=== PATIENT | male | born 1940 | race Caucasian/White ===

== ENCOUNTER 2024-05-03 11:45 | Emergency (ER) | payer OTHER ==
--- NOTE | 2024-05-03 12:37 | RAD REPORT ---
EXAM DESCRIPTION: CT - Ct Stroke Brain Wo Cont - 05/03/2024 12:26 pm CLINICAL HISTORY: Dizziness COMPARISON: none TECHNIQUE: Computed axial tomography of the head was obtained. All CT scans are performed using dose optimization technique as appropriate and may include automated exposure control or mA/KV adjustment according to patient size. FINDINGS: An intracranial bleed is not seen . The ventricles are normal in caliber. No extra-axial fluid collection is noted. Mild to moderate low-density within periventricular, deep and subcortical white matter likely ischemi c changes secondary to small vessel disease Fluid within the sinuses/ mastoids is not seen. IMPRESSION: No acute intracranial abnormality is seen. If patient's symptoms persist MRI of the bra in would be recommended Laila of the emergency room was notified at 12:33 p.m. May 03, 2024
--- NOTE | 2024-05-03 12:45 | RAD REPORT ---
EXAM DESCRIPTION: Sandy Angio05/03/2024 12:26 pm CLINICAL HISTORY: Dizziness COMPARISON: None TECHNIQUE: 100 cc Isovue [address] angiogram of the neck was obtained. 3D MIPS reconstruction performed. All CT scans are performed using dose optimization technique as appropriate and may include automated exposure control or mA/KV adjustment according to patient size. FINDINGS: The examination is suboptimal secondary to machine malfunctioned resulting in the timing o f the bolus being delayed. Visualized great vessels unremarkable Severe plaque is present within the proximal left internal carotid artery Mild plaque in the remainder the common carotid, internal carotid and external carotid arteries. Limited evaluation of the vertebral arteries without gross significant abnormality seen [place] crieria Mild stenosis 0 to 49 % Moderate stenosis 50-69% Severe stenosis 70-99% IMPRESSION: Severe plaque proximal left internal carotid artery resulting in an approximately 95% stenosis
--- NOTE | 2024-05-03 12:46 | RAD REPORT ---
EXAM DESCRIPTION: CTHead angio05/03/2024 12:26 pm CLINICAL HISTORY: Dizziness COMPARISON: none TECHNIQUE: 100 cc Isovue [address] angiogram of the head was obtained. 3D MIPS reconstruction performed. All CT scans are performed using dose optimization technique as appropriate and may include automated exposure control or mA/KV adjustment according to patient size. FINDINGS: The basilar, anterior cerebral, middle cerebral and posterior cerebral arteries do not dem onstrate a significant stenosis Mild calcified plaque distal internal carotid arteries origin left posterior cerebral artery An aneurysm is not seen No large vessel occlusion IMPRESSION: No significant vascular abnormality is displayed
--- NOTE | 2024-05-03 13:45 | RAD REPORT ---
EXAM DESCRIPTION: RAD - Chest Single View - 05/03/2024 1:28 pm CLINICAL HISTORY: dizziness Chest pain. COMPARISON: No comparisons FINDINGS: Portable technique limits examination quality. The lungs are significant emphysematous but grossly clear. The heart is normal in size. No displaced fractures. IMPRESSION: Prominent COPD.
[2024-05-03 13:46] LABS: Absolute Eosinophils 0.1 K/uL (0-0.5); Absolute Monocytes 0.6 K/uL (0.1-1.3); Absolute Neutrophil 7.8 K/uL (1.8-8.0); Basophils % 0.4 % (0-1.3); Eosinophils % 0.6 % (0-4.4); Hematocrit 42.9 % (39.6-49.0); Hemoglobin 13.9 g/dL (13.6-17.9); Lymphocytes % 10.2 % (15.3-44.8); MCH 27.9 pg (27.0-35.0); MCHC 32.5 g/dL (32.0-36.0); MCV 85.8 fL (80-100); MPV 7.8 fL (7.6-11.3); Monocytes % 6.6 % (3.3-12.3); Neutrophils % 82.2 % (41.7-73.7); Platelets 203 thou/uL (152-406); RBC Red Blood Cell Count 4.99 M/uL (4.33-5.43); Red Cell Distribution Width 14.1 % (12.1-15.2)
[2024-05-03 14:02] LABS: Anion Gap 8.2 mEq/L (5.0-15.0); Potassium 4.2 mEq/L (3.5-5.1)
--- NOTE | 2024-05-03 14:03 | RAD REPORT ---
EXAM DESCRIPTION: MRI - Brain Wo Cont - 05/03/2024 1:54 pm CLINICAL HISTORY: DIZZINESS Headache, drowsiness COMPARISON: Head angio dated 05/03/2024 TECHNIQUE: Multi-sequence, multiplanar MR imaging of the brain was performed without contrast. FINDINGS: No intracranial hemorrhage, hydrocephalus or extra-axial fluid collections.Moderate conflu ent T2/FLAIR hyperintensity in the periventricular and deep white matter is present compatible with c hronic microvascular ischemic changes. No edema or shift of midline structures. No findings to suspec t brain mass. DWI is negative for acute CVA. Midline structures are normally formed. Mastoid air cells and paranasal sinuses are clear. IMPRESSION: Negative for acute CVA or other acute intracranial process.
[2024-05-03 14:05] LABS: PT Prothrombin Time 11.9 SECONDS (9.4-12.5); PTT, Activated Partial Thromb 37.5 SECONDS (24.3-36.9); Protime INR 1.06
--- NOTE | 2024-05-03 15:01 | ER ---
Nurse's Notes [facility] Name: Litzy Mtz Age: 83 yrs Sex: Male : 1940 Arrival Date: 05/03/2024 Time: 11:45 Bed 4 Private MD: Diagnosis: Dizziness and giddiness;Left carotid artery stenosis, high grade Presentation: 05/03 11:50 Chief complaint: EMS states: Lives at [facility], was with daughter today walking at the mall and began c/o fatigue, then after leaving mall went to a storage facility and c/o feeling overheated and dizzy, when EMS arrived was found sitting on ground pale and diaphoretic, systolic BP 100s, IV established and 200 mL NS given. Coronavirus screen: Vaccine status: Patient reports receiving the 2nd dose of the covid vaccine. Ebola Screen: No symptoms or risks identified at this time. Initial Sepsis Screen: Does the patient meet any 2 criteria? No. Patient's initial sepsis screen is negative. Does the patient have a suspected source of infection? No. Patient's initial sepsis screen is negative. Risk Assessment: Do you want to hurt yourself or someone else? Patient reports no desire to harm self or others. Onset of symptoms was May 03, 2024. 11:50 Method Of Arrival: EMS: [facility] 11:50 Acuity: WIN 3 ph Triage Assessment: 11:56 General: Appears in no apparent distress. Behavior is calm, cooperative. Pain: Denies ph pain. Neuro: Level of Consciousness is awake, alert, obeys commands, Oriented to person, place. Respiratory: Airway is patent Respiratory effort is even, unlabored. Derm: Skin is pink, warm \T\ dry. Musculoskeletal: Circulation, motion, and sensation intact. Range of motion: intact in all extremities. Historical: - Allergies: 11:54 No Known Allergies; ph - PMHx: 11:54 None; ph - Immunization history:: Adult Immunizations up to date. - Infectious Disease History:: Denies. - Social history:: Smoking status: Patient denies any tobacco usage or history of. - Family history:: not pertinent. - Hospitalizations: : No recent hospitalization is reported. Screenin:56 [facility] ED Fall Risk Assessment (Adult) History of falling in the last 3 months, ph including since admission No falls in past 3 months (0 pts) Confusion or Disorientation No (0 pts) Intoxicated or Sedated No (0 pts) Impaired Gait No (0 pts) Mobility Assist Device Used No (0 pt) Altered Elimination No (0 pt) Score/Fall Risk Level 0 - 2 = Low Risk Oriented to surroundings, Maintained a safe environment, Hourly rounding (assess needs \T\ fall precautionary measures) done. Abuse screen: Denies threats or abuse. Denies injuries from another. Nutritional screening: No deficits noted. Tuberculosis screening: No symptoms or risk factors identified. Assessment: 13:45 General: Appears in no apparent distress. Behavior is calm, cooperative. Pain: Denies ph pain. Neuro: Level of Consciousness is awake, alert, obeys commands, Oriented to person, place, situation. Cardiovascular: Capillary refill < 3 seconds in bilateral fingers Patient's skin is warm and dry. Respiratory: Airway is patent Respiratory effort is even, unlabored. Derm: Skin is pink, warm \T\ dry. 14:36 Reassessment: Initiated transfer at [facility]. Spoke with Enzo, transfer iw coordinator who states he will start working on transfer and call back. 16:00 Reassessment: Patient appears in no apparent distress at this time. Patient and/or ph family updated on plan of care and expected duration. Pain level reassessed. Patient is alert, oriented x 3, equal unlabored respirations, skin warm/dry/pink. 17:23 Reassessment: attempted to call report to receiving hospital, asked to call back in 20 kj2 minutes. Vital Signs: 11:50 BP 120 / 79; Pulse 64; Resp 18; Temp 97.1; Pulse Ox 100% on R/A; Weight 68.04 kg; ph Height 5 ft. 9 in. ; 13:46 BP 121 / 78; Pulse 71; Resp 18; Pulse Ox 97% on R/A; ph 15:30 BP 122 / 78; Pulse 72; Resp 18; Pulse Ox 99% on R/A; ph 17:00 BP 116 / 75; Pulse 68; Resp 16; Pulse Ox 99% on R/A; ph 18:00 BP 112 / 64; Pulse 73; Resp 18; Pulse Ox 100% on R/A; ph 19:00 BP 104 / 70; Pulse 67; Resp 15; Pulse Ox 94% on R/A; me1 20:00 BP 99 / 69; Pulse 63; Resp 16; Temp 98.1; Pulse Ox 94% ; me1 11:50 Body Mass Index 22.15 (68.04 kg, 175.26 cm) ph ED Course: 11:50 Patient arrived in ED. ph 11:54 Triage completed. ph 11:54 Arm band placed on. ph 11:55 Fuad Bhakta MD is Attending Physician. rn 11:57 Patient has correct armband on for positive identification. Bed in low position. Call ph light in reach. Side rails up X2. Client placed on continuous cardiac and pulse oximetry monitoring. NIBP monitoring applied. 12:27 CT Neck Angio In Process Unspecified. EDMS 12:27 CT Stroke Brain w/o Contrast In Process Unspecified. EDMS 12:27 Head angio In Process Unspecified. EDMS 12:43 Caro Cortés, RN is Primary Nurse. ph 13:07 Brain Wo Cont MRI In Process Unspecified. EDMS 13:30 Stroke CXR 1 View In Process Unspecified. EDMS 13:46 Initial lab(s) drawn, by me, sent to lab. EKG done, by ED staff, reviewed by Fuad Bhakta MD. Maintain EMS IV. Dressing intact. Good blood return noted. Site clean \T\ dry. Gauge \T\ site: 20 RAC. Flushed with 10 mL NS. 14:46 Assisted with urinal. Cleaned of incontinence. Linen changed. cm10 18:43 initiated transfer to [facility], pt accepted by dr Pruett admin given by esvin harrison 18:46 pt to be transferred by [facility] at 1930. bd 19:22 No provider procedures requiring assistance completed. Patient transferred, IV remains ph in place. 20:47 Provided Education on: Need for transfer. me1 Administered Medications: 13:45 Drug: NS 0.9% IV 500 ml IV at bolus once Route: IV; Rate: bolus; Site: right ph antecubital; 14:35 Follow up: Response: No adverse reaction; IV Status: Completed infusion; IV Intake: ph 500ml 17:08 Drug: Aspirin PO 325 mg PO once Route: PO; kj2 19:21 Follow up: Response: No adverse reaction ph Medication: 11:57 VIS not applicable for this client. ph Intake: 14:35 IV: 500ml; Total: 500ml. ph Outcome: 15:01 ER care complete, transfer ordered by . rn 20:48 Transferred by ground EMS Transfer form completed. X-rays sent w/ patient. me1 20:48 Transferred to [facility], 20:48 Condition: stable 20:48 Instructed on the need for transfer, 20:49 Patient left the ED. me1 Signatures: Dispatcher [employer] EDMS Rosetta Stewart Irene, RN RN Fuad Bhakta MD MD rn Hall, Patricia, RN RN ph Martinez, Clarissa, RN RN cm10 Kavitha Brennan RN RN me1 Lo Clark, RN RN kj2
--- NOTE | 2024-05-03 15:01 | EDPHYS ---
Physician Documentation [facility] Name: Litzy Mtz Age: 83 yrs Sex: Male : 1940 Arrival Date: 05/03/2024 Time: 11:45 Bed 4 Private MD: ED Physician Fuad Bhakta HPI: 05/03 13:19 This 83 yrs old Male presents to ER via EMS with complaints of General Weakness. rn 13:19 The patient presents with dizziness, feeling faint, generalized weakness, rn lightheadedness. Onset: The symptoms/episode began/occurred this morning. Modifying factors: The symptoms are alleviated by lying down, the symptoms are aggravated by nothing. Severity of symptoms: At their worst the symptoms were moderate in the emergency department the symptoms have resolved. The patient has not experienced similar symptoms in the past. Patient reports generalized weakness and lightheadedness, felt off balance, no syncopal episode. Happened shortly after exercise this morning when he was walking in the mall. Patient reports felt dizzy for a few minutes and now completely back to baseline. Family states does not eat or drink very much since dementia diagnosis. Had COVID 2 weeks ago. No focal weakness or numbness. Does not feel dizzy currently. Does not feel off balance. Denies preceding chest pain or shortness of breath.. Historical: - Allergies: 11:54 No Known Allergies; ph - PMHx: 11:54 None; ph - Immunization history:: Adult Immunizations up to date. - Infectious Disease History:: Denies. - Social history:: Smoking status: Patient denies any tobacco usage or history of. - Family history:: not pertinent. - Hospitalizations: : No recent hospitalization is reported. ROS: 13:19 Constitutional: Negative for fever, chills, and weight loss, Eyes: Negative for injury, rn pain, redness, and discharge, ENT: Negative for injury, pain, and discharge, Neck: Negative for injury, pain, and swelling, Cardiovascular: Negative for chest pain, palpitations, and edema, Respiratory: Negative for shortness of breath, cough, wheezing, and pleuritic chest pain, Abdomen/GI: Negative for abdominal pain, nausea, vomiting, diarrhea, and constipation, Back: Negative for injury and pain, MS/Extremity: Negative for injury and deformity, Skin: Negative for injury, rash, and discoloration, Neuro: Negative for headache, numbness, tingling, and seizure Exam: 13:19 Constitutional: This is a well developed, well nourished patient who is awake, alert, rn and in no acute distress. Head/Face: Normocephalic, atraumatic. ENT: Dry mucous membranes Cardiovascular: Regular rate and rhythm. No pulse deficits. Respiratory: No increased work of breathing, no retractions or nasal flaring. Abdomen/GI: Soft, non-tender MS/ Extremity: Pulses equal, no cyanosis. Neurovascular intact. Full, normal range of motion. Equal circumference. Neuro: Awake and alert, GCS 15, oriented to person, place, time, and situation. Cranial nerves II-XII grossly intact. Motor strength 5/5 in all extremities. Sensory grossly intact. Cerebellar exam normal 15:56 ECG was reviewed by the Attending Physician. rn Vital Signs: 11:50 BP 120 / 79; Pulse 64; Resp 18; Temp 97.1; Pulse Ox 100% on R/A; Weight 68.04 kg; ph Height 5 ft. 9 in. ; 13:46 BP 121 / 78; Pulse 71; Resp 18; Pulse Ox 97% on R/A; ph 15:30 BP 122 / 78; Pulse 72; Resp 18; Pulse Ox 99% on R/A; ph 17:00 BP 116 / 75; Pulse 68; Resp 16; Pulse Ox 99% on R/A; ph 18:00 BP 112 / 64; Pulse 73; Resp 18; Pulse Ox 100% on R/A; ph 19:00 BP 104 / 70; Pulse 67; Resp 15; Pulse Ox 94% on R/A; me1 20:00 BP 99 / 69; Pulse 63; Resp 16; Temp 98.1; Pulse Ox 94% ; me1 11:50 Body Mass Index 22.15 (68.04 kg, 175.26 cm) ph MDM: 11:55 Patient medically screened. rn 14:24 ED course: Consulted with Dr. Harrell, recommends transfer given TIA presentation and rn 95% stenosis of the left internal carotid artery.. 14:35 Differential diagnosis: CVA, hypovolemia, idiopathic dizziness, TIA, vertigo. Data rn reviewed: vital signs, nurses notes, lab test result(s), radiologic studies, CT scan, MRI, and as a result, I will admit patient. Consideration of Admission/Observation Patient was admitted/placed on observation. Escalation of care including admission/observation considered. Counseling: I had a detailed discussion with the patient and/or guardian regarding the historical points, exam findings, and any diagnostic results supporting the discharge/admit diagnosis, lab results, radiology results, the need for further work-up and treatment in the hospital, the need to transfer to another facility. 05/03 12:06 Order name: Basic Metabolic Panel; Complete Time: 14:10 05/03 12:06 Order name: CBC with Diff; Complete Time: 14:10 05/03 12:06 Order name: High Sensitivity Troponin; Complete Time: 14:10 05/03 12:06 Order name: Protime (+inr); Complete Time: 14:10 05/03 12:06 Order name: Ptt, Activated; Complete Time: 14:10 05/03 12:45 Order name: CREATININE WHOLE BLOOD; Complete Time: 14:11 [facility] 05/03 12:06 Order name: CT Neck Angio 05/03 12:06 Order name: CT Stroke Brain w/o Contrast 05/03 12:06 Order name: Stroke CXR 1 View 05/03 12:06 Order name: Brain Wo Cont MRI 05/03 12:25 Order name: Head angio [facility] 05/03 12:06 Order name: Accucheck; Complete Time: 13:45 05/03 12:06 Order name: Cardiac monitoring; Complete Time: 13:45 05/03 12:06 Order name: EKG - Nurse/Tech; Complete Time: 13:45 05/03 12:06 Order name: IV Saline Lock; Complete Time: 13:45 05/03 12:06 Order name: Labs collected and sent; Complete Time: 13:45 rn 05/03 12:06 Order name: NPO; Complete Time: 13:45 rn 05/03 12:06 Order name: O2 Per Protocol; Complete Time: 13:45 rn 05/03 12:06 Order name: O2 Sat Monitoring; Complete Time: 13:45 rn 05/03 12:06 Order name: Stroke Swallow Screen; Complete Time: 13:45 rn EC:56 Rate is 74 beats/min. Rhythm is regular. QRS [place] is Normal. GA interval is normal. QRS rn interval is normal. QT interval is normal. No Q waves. T waves are Normal. No ST changes noted. Clinical impression: Normal ECG. Interpreted by me. Reviewed by me. Administered Medications: 13:45 Drug: NS 0.9% IV 500 ml IV at bolus once Route: IV; Rate: bolus; Site: right ph antecubital; 14:35 Follow up: Response: No adverse reaction; IV Status: Completed infusion; IV Intake: ph 500ml 17:08 Drug: Aspirin PO 325 mg PO once Route: PO; kj2 19:21 Follow up: Response: No adverse reaction ph Disposition Summary: 05/03/24 15:01 Transfer Ordered Notes: Transfer Location: [facility] rn Reason: Higher level of care rn Condition: Stable rn Problem: new rn Symptoms: have improved rn Accepting Physician: (05/03/24 20:49) me1 Diagnosis - Dizziness and giddiness rn - Left carotid artery stenosis, high grade rn Forms: - Medication Reconciliation Form rn - SBAR form rn Signatures: Dispatcher [employer] EDMS Fuad Bhakta MD MD rn Hall, Patricia RN RN Kavitha Brennan, RN RN me1 Lo Clark RN RN kj2 Corrections: (The following items were deleted from the chart) 12:07 12:07 Neck Angio+CT.RAD.BRZ ordered. EDMS EDMS 12:07 12:07 CT-STROKE BRAIN W/O CONTRAST+CT.RAD.BRZ ordered. EDMS EDMS 12:07 12:07 Chest Single View+RAD.RAD.BRZ ordered. EDMS EDMS 12:07 12:07 Brain Wo Cont+MRI.RAD.BRZ ordered. EDMS EDMS 20:49 15:01 rn me1
[2024-05-03] MEDS ORDERED: ASPIRIN 325 MG TAB ONE (16:59)
[2024-05-03 20:58] VITALS: O2SAT 94
[2024-05-03 21:00] VITALS: BP 99/69; TEMP 98.1
== END 2024-05-03 20:49 | disposition short-term general hospital (02) ==
LOC: ER 11:45
DX: I65.22 Occlusion and stenosis of left carotid artery (principal)
CPT/HCPCS: 85025; 80048; 36415; 85610; 82565; 85730; 84484; 70496; 70498; 70450; 71045; 70551; Q9967

== ENCOUNTER 2024-06-26 11:10 | Emergency (ER) | payer OTHER ==
[2024-06-26] MEDS ORDERED: NA CHLORIDE 0.9% 250 ML ONE (11:36)
[2024-06-26 11:44] LABS: Absolute Basophils 0.1 K/uL (0-0.5); Absolute Lymphocytes (CBC) 1.3 K/uL (0.7-4.9); Absolute Monocytes 0.5 K/uL (0.1-1.3); Absolute Neutrophil 4.6 K/uL (1.8-8.0); Basophils % 1.2 % (0-1.3); Eosinophils % 0.6 % (0-4.4); Hematocrit 41.3 % (39.6-49.0); Hemoglobin 13.4 g/dL (13.6-17.9); Lymphocytes % 20.1 % (15.3-44.8); MCH 27.8 pg (27.0-35.0); MCHC 32.4 g/dL (32.0-36.0); MPV 7.9 fL (7.6-11.3); Neutrophils % 71.1 % (41.7-73.7); Platelets 227 thou/uL (152-406); Red Cell Distribution Width 13.7 % (12.1-15.2)
--- NOTE | 2024-06-26 11:58 | RAD REPORT ---
EXAM: Ct Stroke Brain Wo Cont HISTORY: STROKE ALERT COMPARISON: 05/03/2024 TECHNIQUE: Multiple contiguous axial images were obtained for a CT of the brain without contrast. Sag ittal and coronal reformats were performed. One or more of the following dose reduction techniques were used: Automated exposure control, adjus tment of the mA and kV according to patient size, and iterative reconstruction. Unless otherwise specified, incidental findings do not require dedicated imaging follow-up. FINDINGS: No evidence of hydrocephalus, intracranial hemorrhage, or extra-axial fluid collection. Moderate brain atrophy with moderate periventricular and deep white matter chronic microvascular isc hemic changes present. The calvarium is intact. The visualized paranasal sinuses and mastoid air cells are essentially clear . IMPRESSION: No evidence of acute intracranial abnormality. THIS REPORT CONTAINS FINDINGS THAT MAY BE CRITICAL TO PATIENT CARE. The findings were verbally commun icated via telephone to Damir Lezama MD on 06/26/2024 11:55 AM.
[2024-06-26 12:01] LABS: Anion Gap 6.9 mEq/L (5.0-15.0); Potassium 3.9 mEq/L (3.5-5.1); Troponin High Sensitivity 5.9 pg/mL (<58.9)
--- NOTE | 2024-06-26 12:23 | RAD REPORT ---
EXAMINATION: ONE VIEW CHEST XR CLINICAL INDICATION: Male, 83 years old.,Weakness TECHNIQUE: Frontal chest projection is submitted. Examination is limited by patient positioning and t echnique. COMPARISON: 05/03/2024 FINDINGS: The lungs are well inflated with no new focal opacities. Hyperlucency, bilateral apical scarring, and other diffuse chronic interstitial changes, stable. No pneumothorax or sizable effusion. The heart is normal in size. IMPRESSION: No acute intrathoracic abnormalities. Stable findings suggestive of COPD.
--- NOTE | 2024-06-26 12:40 | EDPHYS ---
Physician Documentation [facility] Name: Litzy Mtz Age: 83 yrs Sex: Male : 1940 Arrival Date: 06/26/2024 Time: 11:10 Bed 17 Private MD: ED Physician Guilherme Springer HPI: 06/26 12:28 This 83 yrs old Male presents to ER via EMS with complaints of Near Syncope. bo1 12:28 Pt was "dizzy" after shopping at [facility]. Onset: The symptoms/episode began/occurred bo1 suddenly. Duration: This was a single episode, that lasted an unknown period of time, Resolved, no residual symptoms. "I feel better.". Context: the episode(s) was witnessed, by a bystander, [facility] personnel. Associated signs and symptoms: The patient has no apparent associated signs or symptoms, Pertinent negatives: chest pain, diaphoresis, headache, shortness of breath. Current symptoms: Currently, the patient is not experiencing any symptoms. Pt went with other facility residents on a "shopping excusion" to [facility]. Historical: - Allergies: 11:26 Celebrex; cm10 - PMHx: 11:26 Hypertensive disorder; Prostate Cancer; TIA; Cerebrovascular accident; Rheumatoid cm10 arthritis; Dementia; Alzheimer's disease; - Immunization history:: Adult Immunizations up to date. - Infectious Disease History:: Denies. - Social history:: Smoking status: unknown. ROS: 12:31 Constitutional: Negative for fever, chills, and weight loss, bo1 12:31 Eyes: Negative for blurry vision, 12:31 Cardiovascular: Negative for chest pain, acute changes, 12:31 Respiratory: Negative for shortness of breath, acute changes, 12:31 Abdomen/GI: Negative for abdominal pain, 12:31 Neuro: Positive for dizziness, Briefly after purchase of some bug repellant spray, 12:31 All other systems are negative, Exam: 12:32 Constitutional: This is a well developed, well nourished patient who is awake, alert, bo1 and in no acute distress. Eyes: Pupils equal round and reactive to light, extra-ocular motions intact. Lids and lashes normal. Conjunctiva and sclera are non-icteric and not injected. Cornea within normal limits. Periorbital areas with no swelling, redness, or edema. 12:32 Constitutional: The patient appears in no acute distress, alert, awake, comfortable, 12:32 Head/face: Exam is negative for acute changes, No asymmetry. 12:32 Eyes: Exam is negative for acute changes, 12:32 Chest/axilla: Inspection: normal, 12:32 Cardiovascular: Rate: normal, Rhythm: regular, 12:32 ECG was reviewed by the Attending Physician. 12:32 Respiratory: Exam negative for acute changes, the patient does not display signs of respiratory distress, Respirations: normal, Breath sounds: are clear throughout, 12:35 Abdomen/GI: Exam negative for acute changes, Palpation: abdomen is soft and non-tender, bo1 12:35 Musculoskeletal/extremity: Extremities: all appear grossly normal, with no appreciated pain with palpation, 12:35 Neuro: Orientation: is normal, Mentation: is normal, Cranial nerves: is grossly normal based on the patient's age, Cerebellar function: is grossly normal based on the patient's age, Abnormal movements: there are no abnormal movements, 12:40 Skin: Turgor: Mild delay in the tenting exam of the UE bilaterally, bo1 Vital Signs: 11:27 BP 119 / 75; Pulse 68; Resp 15; Temp 98; Pulse Ox 100% on R/A; Weight 58.97 kg; Height mb9 5 ft. 6 in. ; Pain 0/10; 12:59 BP 125 / 78; Pulse 79; Resp 18; Pulse Ox 98% on R/A; mb9 11:27 Body Mass Index 20.98 (58.97 kg, 167.64 cm) mb9 11:27 Pain Scale: Adult mb9 NIH Stroke Scale Scores: 12:35 NIHSS Score: 0 bo1 MDM: 11:21 Medical Screening Exam initiated bo1 12:37 Differential Diagnosis: cardiac arrhythmia, transient ischemic attack, vasovagal bo1 episode. Data reviewed: vital signs, lab test result(s), EKG, radiologic studies, CT scan, plain films, Obtained hx from EMS. ED course: Pt is back to baseline before arrival to the ER. ED course: No symptoms or signs, stable and will be discharged to his facility. 12:57 Special discussion: Daughter arrived to take him to the facility. Occ dementia and that bo1 the pt felt a need to get the repellant spray. She affirms that he's at his baseline and feel comfortable to take him from the ER. 06/26 11:26 Order name: Basic Metabolic Panel; Complete Time: 12:27 bo1 06/26 11:26 Order name: CBC with Diff; Complete Time: 12:27 bo1 06/26 11:26 Order name: High Sensitivity Troponin; Complete Time: 12:27 bo1 06/26 11:26 Order name: CT Stroke Brain w/o Contrast; Complete Time: 12:27 bo1 06/26 11:26 Order name: Stroke CXR 1 View; Complete Time: 12:27 bo1 06/26 11:26 Order name: Accucheck; Complete Time: 11:32 bo1 06/26 11:26 Order name: Cardiac monitoring; Complete Time: 11:32 bo1 06/26 11:26 Order name: EKG - Nurse/Tech; Complete Time: 11:32 bo1 06/26 11:26 Order name: IV Saline Lock; Complete Time: 11:32 bo1 06/26 11:26 Order name: Labs collected and sent; Complete Time: 11:32 bo1 06/26 11:26 Order name: NPO; Complete Time: 11:32 bo06/26 11:26 Order name: O2 Per Protocol; Complete Time: 11:32 bo06/26 11:26 Order name: O2 Sat Monitoring; Complete Time: 11:32 bo06/26 11:26 Order name: Stroke Swallow Screen; Complete Time: 11:32 bo1 EC:32 Rate is 66 beats/min. Rhythm is regular. QRS [place] is Normal. [place] interval is normal. QRS bo1 interval is normal. QT interval is normal. No Q waves. T waves are Normal. No ST changes noted. Clinical impression: Normal ECG and No evidence of ischemia. Interpreted by me. Reviewed by me. Administered Medications: 11:34 Drug: NS 0.9% IV 250 ml IV at bolus bolus; to be given as a bolus over 30 minutes mb9 Route: IV; Rate: bolus; Site: left antecubital; 12:53 Follow up: Response: No adverse reaction; IV Status: Completed infusion mb9 Disposition Summary: 06/26/24 12:40 Discharge Ordered Notes: Location: Home bo1 Problem: new bo1 Symptoms: are resolved bo1 Condition: Stable bo1 Diagnosis - Dizziness and giddiness bo1 Followup: bo1 - With: Private Physician - When: As needed - Reason: Recheck today's complaints Discharge Instructions: - Discharge Summary Sheet bo1 - Near-Syncope, [id number] bo1 Forms: - Medication Reconciliation Form bo1 - Antibiotic Education bo1 - Prescription Opioid Use bo1 - Patient Portal Instructions bo1 - Leadership Thank You Letter bo1 NIH Stroke Scale - NIH Stroke Score Date: 06/26/2024 Time: 12:35 Total Score = 0 10. Dysarthria (speech clarity - read or repeat words) - 0(Normal) 11. Extinction and Inattention (visual/tactile/auditory/spatial/personal) - 0(No abnormality) 1a. Level of Consciousness (LOC) - 0(Alert) 1b. Level of Consciousness (LOC) (Month \\T\\ Age) - 0(Both) 1c. LOC Commands (Open \\T\\ Closes Eyes/Equipment Mechanic Specialist) - 0(Both) 2. Best Gaze (Lateral Gaze Paresis) - 0(Normal) 3. Visual Field Loss - 0(No visual loss) 4. Facial Palsy - 0(Normal) 5a. Left Arm: Motor (10-second hold) - 0(No drift) 5b. Right Arm: Motor (10-second hold) - 0(No drift) 6a. Left Leg: Motor (5-second hold - always test supine) - 0(No drift) 6b. Right Leg: Motor (5-second hold - always test supine) - 0(No drift) 7. Limb Ataxia (finger/nose \\T\\ heel/keller - test with eyes open) - 0(Absent) 8. Sensory Loss (pinprick arms/legs/face) - 0(Normal) 9. Best Language: Aphasia (description/naming/reading) - 0(No aphasia) Initials: bo1 Signatures: Dispatcher [employer] EDLiz Suarez RN RN mb9 Ellie Garcia RN RN cm10 Guilherme Springer MD MD bo1 Corrections: (The following items were deleted from the chart) 11: 11:27 BASIC METABOLIC PANEL+C.LAB.BRZ ordered. EDMS EDMS 11: 11:27 CBC+H.LAB.BRZ ordered. EDMS EDMS 11: 11:27 Troponin High Sensitivity+C.LAB.BRZ ordered. EDMS EDMS 11: 11:27 CT-STROKE BRAIN W/O CONTRAST+CT.RAD.BRZ ordered. EDMS EDMS : Chest Single View+RAD.RAD.BRZ ordered. EDMS EDMS
--- NOTE | 2024-06-26 12:40 | ER ---
Nurse's Notes [facility] Name: Litzy Mtz Age: 83 yrs Sex: Male : 1940 Arrival Date: 06/26/2024 Time: 11:10 Bed 17 Private MD: Diagnosis: Dizziness and giddiness Presentation: 06/26 11:21 Method Of Arrival: EMS: [facility] cm10 11:24 Chief complaint: EMS states: Was shopping at [employer] and had a near-syncopal episode. cm10 pt felt dizzy and light headed and was helped to the ground. Pt from [facility]. Pt states that he feels better. Coronavirus screen: Client denies travel out of the [place] in the last 14 days. Ebola Screen: Patient denies travel to an Ebola-affected area in the 21 days before illness onset. No symptoms or risks identified at this time. Initial Sepsis Screen: Does the patient meet any 2 criteria? No. Patient's initial sepsis screen is negative. Does the patient have a suspected source of infection? No. Patient's initial sepsis screen is negative. Risk Assessment: Do you want to hurt yourself or someone else? Patient reports no desire to harm self or others. Onset of symptoms was June 26, 2024. Care prior to arrival: Medication(s) given: IV initiated. 20 GA, in the left antecubital area, Glucose check: 92. 11:24 Acuity: WIN 3 cm10 Historical: - Allergies: 11:26 Celebrex; cm10 - PMHx: 11:26 Hypertensive disorder; Prostate Cancer; TIA; Cerebrovascular accident; Rheumatoid cm10 arthritis; Dementia; Alzheimer's disease; - Immunization history:: Adult Immunizations up to date. - Infectious Disease History:: Denies. - Social history:: Smoking status: unknown. Screenin:42 [facility] ED Fall Risk Assessment (Adult) History of falling in the last 3 months, mb9 including since admission Yes- physiologic fall (2 pts) Confusion or Disorientation No (0 pts) Intoxicated or Sedated No (0 pts) Impaired Gait No (0 pts) Mobility Assist Device Used No (0 pt) Altered Elimination No (0 pt) Score/Fall Risk Level 3 or more points = High Risk Oriented to surroundings, Maintained a safe environment, Educated pt \T\ family on fall prevention, incl call for assistance when getting out of bed, Assessed \T\ reinforced patient's understanding of fall precautions. Abuse screen: Denies threats or abuse. Nutritional screening: No deficits noted. Tuberculosis screening: No symptoms or risk factors identified. Assessment: 11:39 Reassessment: Daughter at bedside. mb9 11:40 General: Appears in no apparent distress. Behavior is calm, cooperative. Pain: Denies mb9 pain. Neuro: Level of Consciousness is awake, alert, obeys commands, Oriented to person, place, situation, Electronic Warfare Specialist are equal bilaterally Moves all extremities. Gait is steady, Speech is normal, Facial symmetry appears normal, Pupils are PERRLA, Intact. Cardiovascular: Heart tones S1 S2 present Patient's skin is warm and dry. Rhythm is regular. Respiratory: Airway is patent Respiratory effort is even, unlabored, Respiratory pattern is regular, symmetrical. GI: Abdomen is flat, non-distended. : No signs and/or symptoms were reported regarding the genitourinary system. EENT: No signs and/or symptoms were reported regarding the EENT system. Derm: Skin is pink, warm \T\ dry. Musculoskeletal: Range of motion: intact in all extremities. 12:59 Reassessment: Patient and/or family updated on plan of care and expected duration. Pain mb9 level reassessed. Patient is alert, oriented x 3, equal unlabored respirations, skin warm/dry/pink. Patient states feeling better. Patient states symptoms have improved. Vital Signs: 11:27 BP 119 / 75; Pulse 68; Resp 15; Temp 98; Pulse Ox 100% on R/A; Weight 58.97 kg; Height mb9 5 ft. 6 in. ; Pain 0/10; 12:59 BP 125 / 78; Pulse 79; Resp 18; Pulse Ox 98% on R/A; mb9 11:27 Body Mass Index 20.98 (58.97 kg, 167.64 cm) mb9 11:27 Pain Scale: Adult mb9 NIH Stroke Scale Scores: 12:35 NIHSS Score: 0 bo1 ED Course: 11:16 Patient arrived in ED. mb9 11:18 Liz Carmen RN is Primary Nurse. mb9 11:20 Arm band placed on Patient placed in an exam room, on a stretcher. cm10 11:21 Guilherme Springer MD is Attending Physician. bo1 11:26 Triage completed. cm10 11:38 EKG done, by ED staff. rs6 11:40 Maintain EMS IV. Dressing intact. Good blood return noted. Site clean \T\ dry. Gauge \T\ mb 9 site: 20 g left AC. Flushed with 10 mL NS. 11:42 Placed in gown. Bed in low position. Call light in reach. Side rails up X 1. Provided mb9 Education on: press call light if needing anything. Client placed on continuous cardiac and pulse oximetry monitoring. NIBP monitoring applied. motor setter on. 11:43 CT Stroke Brain w/o Contrast In Process Unspecified. EDMS 11:56 Stroke CXR 1 View In Process Unspecified. EDMS 12:04 Assisted to bathroom. Cleaned of incontinence. mb9 12:04 No provider procedures requiring assistance completed. mb9 12:14 changed brief and cleaned the patient. rs6 12:52 IV discontinued, intact, bleeding controlled, No redness/swelling at site. Pressure mb9 dressing applied. Administered Medications: 11:34 Drug: NS 0.9% IV 250 ml IV at bolus bolus; to be given as a bolus over 30 minutes mb9 Route: IV; Rate: bolus; Site: left antecubital; 12:53 Follow up: Response: No adverse reaction; IV Status: Completed infusion mb9 Medication: 11:42 VIS not applicable for this client. mb9 Outcome: 12:40 Discharge ordered by . bo1 12:53 Discharged to home ambulatory, with family, mb9 12:53 Condition: stable 12:53 Discharge instructions given to patient, family, Instructed on discharge instructions, follow up and referral plans. Demonstrated understanding of instructions, follow-up care, 12:59 Patient left the ED. mb9 NIH Stroke Scale - NIH Stroke Score Date: 06/26/2024 Time: 12:35 Total Score = 0 10. Dysarthria (speech clarity - read or repeat words) - 0(Normal) 11. Extinction and Inattention (visual/tactile/auditory/spatial/personal) - 0(No abnormality) 1a. Level of Consciousness (LOC) - 0(Alert) 1b. Level of Consciousness (LOC) (Month \T\ Age) - 0(Both) 1c. LOC Commands (Open \T\ Closes Eyes/Blood Bank Technician) - 0(Both) 2. Best Gaze (Lateral Gaze Paresis) - 0(Normal) 3. Visual Field Loss - 0(No visual loss) 4. Facial Palsy - 0(Normal) 5a. Left Arm: Motor (10-second hold) - 0(No drift) 5b. Right Arm: Motor (10-second hold) - 0(No drift) 6a. Left Leg: Motor (5-second hold - always test supine) - 0(No drift) 6b. Right Leg: Motor (5-second hold - always test supine) - 0(No drift) 7. Limb Ataxia (finger/nose \T\ heel/keller - test with eyes open) - 0(Absent) 8. Sensory Loss (pinprick arms/legs/face) - 0(Normal) 9. Best Language: Aphasia (description/naming/reading) - 0(No aphasia) Initials: bo1 Signatures: Dispatcher [employer] Liz Jimenez RN RN mb9 Ellie Garcia RN RN cm10 Guilherme Springer MD MD bo1 Damir Cohn rs6 Corrections: (The following items were deleted from the chart) 11:40 11:27 BP 119 / 75; Pulse 68bpm; Resp 15bpm; Pulse Ox 100% RA; cm10 mb9
[2024-06-26 15:16] VITALS: TEMP 98
[2024-06-26 15:17] VITALS: BP 125/78; O2SAT 98
--- NOTE | 2024-06-27 12:53 | EKG ---
Test Date: 2024-06-26 Test Time: 11:34:20 Marketing Content Manager: AMARILIS MEASUREMENT RESULTS: Intervals: Rate: 66 NH: 146 QRSD: 84 QT: 436 QTc: 457 [place]: P: 89 NH: 146 QRS: 28 T: 27 INTERPRETIVE STATEMENTS: Normal sinus rhythm Cannot rule out Anterior infarct, age undetermined Abnormal ECG Compared to ECG 05/03/2024 13:31:33 Myocardial infarct finding now present Electronically Signed On 06-27-24 12:50:13 CDT by Sp Chapa
== END 2024-06-26 12:59 | disposition home or self-care (01) ==
LOC: ER 11:10
DX: R42 Dizziness and giddiness (principal); R55 Syncope and collapse; G30.9 Alzheimer's disease, unspecified; F02.80 Dementia in other diseases classified elsewhere, unspecified severity, without behavioral disturbance, psychotic disturbance, mood disturbance, and anxiety; I10 Essential (primary) hypertension; Z86.73 Personal history of transient ischemic attack (TIA), and cerebral infarction without residual deficits
CPT/HCPCS: 96365; 93005; 85025; 80048; 36415; 84484; 70450; 71045; 99285; J7050